=== PATIENT | female | born 1990 | race Caucasian/White ===

== ENCOUNTER 2019-10-11 23:42 | Emergency (ER) | payer MEDICAID, SELFPAY ==
[2019-10-11 23:55] VITALS: BP 164/110; PULSE 75; RESP 18; TEMP 36.9; O2SAT 97; BMI 36.0
--- NOTE | 2019-10-12 02:39 | W.ED.ABDPA2 ---
HPI - Abdominal Pain General: Chief Complaint: Abdominal Pain Stated Complaint: ABD PAIN Time Seen by Provider: 10/12/19 02:35 Source: patient Mode of arrival: ambulatory Limitations: no limitations History of Present Illness: HPI narrative: 29-year-old female states she has been having right lower quadrant abdominal pain over the last day. She states it is episodic in nature and seems be worse with movement. States the pain currently is a 2 out of 10. Denies any vomiting or diarrhea. Denies any fevers. Patient denies any vaginal discharge or bleeding. MD elicited complaint: abdominal pain Pertinent past history: none Onset (ago): day(s) Pain Consistency: constant Location: RLQ Severity: moderate Radiation: none Exacerbating factors: movement Relieving factors: rest Associated Symptoms: Reports nausea; Denies chills, dysuria and fever(s) Related Data: Date of Last Menstrual Period: 10/01/19 Review of Systems Const: Denies: fever, chills, body aches or change in appetite Eyes: Denies: blurry vision or eye discomfort ENMT: Denies: throat pain or dental pain Card: Denies: chest pain Resp: Denies: shortness of breath GI: Reports: abdominal pain and nausea : Denies: painful urination Musc: Denies: neck pain or back pain Skin/Breast: Denies: rash Neuro: Denies: headache Psych: Denies: depression Shiraz/Lymph: Denies: easy bruising All/Imm: Denies: hives [facility] ED PFSH: Social History Smoking and tobacco status: never smoked Female Reproductive History: Date of last menstrual period: 10/01/19 Physical Exam Const: COMMON NORMALS: no apparent distress, oriented x3 and healthy appearing HENMT: COMMON NORMALS: normocephalic and head/scalp atraumatic HEAD & SCALP: normocephalic and atraumatic Eye: COMMON NORMALS: PERRL and EOMs intact bilaterally PUPIL: Yes PERRL Neck/C-Spine: COMMON NORMALS: full ROM and supple Chest: COMMONS NORMALS: inspection of chest normal and palpation of chest normal Resp: COMMON NORMALS: normal respiratory effort, no retractions, no use of accessory muscles and clear to auscultation bilaterally AUSCULTATION: clear to auscultation bilaterally Cardio: COMMON NORMALS: regular rate, regular rhythm and no murmurs RATE: regular rate RHYTHM: regular rhythm GI: COMMON NORMALS: normal to inspection, nondistended, normoactive bowel sounds, soft to palpation and no masses PALPATION: Yes soft and Yes tender Details: RLQ Extremity: COMMON NORMALS: normal to inspection and full ROM Neuro: COMMON NORMALS: oriented x3, moves all extremities and no focal motor deficits Psych: COMMON NORMALS: mental status grossly normal, thought process normal and cooperative THOUGHT PROCESS: normal thought process Skin: COMMON NORMALS: no rashes or lesions noted and no wounds GENERAL SKIN EXAM: no rashes or lesions noted Course Vital Signs: Vital signs: Vital Signs Temperature 98.5 F 10/11/19 23:55 Pulse Rate 71 10/12/19 03:15 Respiratory Rate 16 10/12/19 03:15 Blood Pressure 128/81 10/12/19 03:15 Pulse Oximetry 97 10/12/19 03:15 MDM - Abdominal Pain MDM Narrative: Medical decision making narrative: Patient presents here with abdominal pain and CT found colitis. Patient's pain is improved here and lab work is otherwise negative. Will place on Augmentin along with pain meds. Patient is to follow-up with primary care doctor in 3 to 5 days and return if worsening. Lab Data: Labs: Lab Results 10/12/19 10/12/19 10/12/19 Range/Units 03:08 03:08 03:13 WBC 7.9 (4.0-10.0) 10^3/ uL RBC 5.35 H (4.1-5.3) 10^6/u L Hgb 14.0 (11.5-15.3) g/dL Hct 44.1 (37.0-47.0) % MCV 82.4 (81-99) fL MCH 26.2 L (28.0-34.0) pg MCHC 31.7 (30.0-36.0) g/dL RDW 15.2 H (12.1-15.1) % Plt Count 347 (130-400) 10^3/c mm MPV 9.0 (7.4-10.4) fL Neut % (Auto) 70.9 % Lymph % (Auto) 19.7 % [place] % (Auto) 7.7 % Eos % (Auto) 1.1 % Baso % (Auto) 0.3 % Neut # (Auto) 5.6 (1.8-7.7) 10^3/u L Lymph # (Auto) 1.6 (0.8-4.8) 10^3/u L [place] # (Auto) 0.6 (0.2-0.9) 10^3/u L Eos # (Auto) 0.1 (0.0-0.8) 10^3/u L Baso # (Auto) 0.0 (0.0-0.1) 10^3/u L Nucleated RBC % (a uto) 0 % Nucleated RBCs # 0.0 /100WBC Sodium 138 (136-145) mmol/L Potassium 3.8 (3.5-5.1) mmol/L Chloride 102 (98-107) mmol/L Carbon Dioxide 24 (22-29) mmol/L Anion Gap 15.8 (5-19) BUN 9 (6-20) mg/dL Creatinine 0.7 (0.5-0.9) mg/dL GFR Calculation 98.9 (90-130) mL/min Glucose 111 (65-115) mg/dL Calculated Osmolal ity 283 L (285-295) mOsm/k g Calcium 9.9 (8.5-10.5) mg/dL Total Bilirubin 1.2 (0.15-1.2) mg/dL AST 22 (0-32) U/L ALT 35 H (0-33) U/L Alkaline Phosphata se 93 (35-105) IU/L Total Protein 8.3 (6.6-8.7) g/dL Albumin 4.7 (3.5-5.2) g/dL Globulin 3.6 (1.3-4.6) g/dL Lipase 21 (13-60) U/L HCG, Qual Negative (Negative) Urine Color (Yellow) Urine Appearance (CLEAR) Urine pH (5-7) Ur Specific Gravit y (1.005-1.030) Urine Protein (Negative) Urine Glucose (UA) (Normal) Urine Ketones (Negative) Urine Blood (Negative) Urine Nitrate (Negative) Urine Bilirubin (NEGATIVE) Urine Urobilinogen (Negative) mg/dL Ur Leukocyte Keisha ase (Negative) Urine RBC (0-2) /hpf Urine WBC (0-5) /hpf Ur Squamous Epith Cells (0-5) Urine Bacteria (NONE) Urine Mucus 10/12/19 Range/Units 03:13 WBC (4.0-10.0) 10^3/ uL RBC (4.1-5.3) 10^6/u L Hgb (11.5-15.3) g/dL Hct (37.0-47.0) % MCV (81-99) fL MCH (28.0-34.0) pg MCHC (30.0-36.0) g/dL RDW (12.1-15.1) % Plt Count (130-400) 10^3/c mm MPV (7.4-10.4) fL Neut % (Auto) % Lymph % (Auto) % [place] % (Auto) % Eos % (Auto) % Baso % (Auto) % Neut # (Auto) (1.8-7.7) 10^3/u L Lymph # (Auto) (0.8-4.8) 10^3/u L [place] # (Auto) (0.2-0.9) 10^3/u L Eos # (Auto) (0.0-0.8) 10^3/u L Baso # (Auto) (0.0-0.1) 10^3/u L Nucleated RBC % (a uto) % Nucleated RBCs # /100WBC Sodium (136-145) mmol/L Potassium (3.5-5.1) mmol/L Chloride (98-107) mmol/L Carbon Dioxide (22-29) mmol/L Anion Gap (5-19) BUN (6-20) mg/dL Creatinine (0.5-0.9) mg/dL GFR Calculation (90-130) mL/min Glucose (65-115) mg/dL Calculated Osmolal ity (285-295) mOsm/k g Calcium (8.5-10.5) mg/dL Total Bilirubin (0.15-1.2) mg/dL AST (0-32) U/L ALT (0-33) U/L Alkaline Phosphata se (35-105) IU/L Total Protein (6.6-8.7) g/dL Albumin (3.5-5.2) g/dL Globulin (1.3-4.6) g/dL Lipase (13-60) U/L HCG, Qual (Negative) Urine Color Yellow (Yellow) Urine Appearance Clear (CLEAR) Urine pH 5 (5-7) Ur Specific Gravit y 1.025 (1.005-1.030) Urine Protein Neg (Negative) Urine Glucose (UA) Norm (Normal) Urine Ketones Negative (Negative) Urine Blood 2+ H (Negative) Urine Nitrate Negative (Negative) Urine Bilirubin Neg (NEGATIVE) Urine Urobilinogen Norm (Negative) mg/dL Ur Leukocyte Keisha ase Negative (Negative) Urine RBC 0-4 H (0-2) /hpf Urine WBC 0-4 H (0-5) /hpf Ur Squamous Epith Cells 0-4 H (0-5) Urine Bacteria Trace (NONE) Urine Mucus 2+ Imaging Data ^: CT Abd/Pel: Radiologist's impression: [place] [id number] CT Scan Report Signed Patient: Lynnette Palmer Unit #: [id number] : 1990 Age/Sex: 29 / F ADM Date: 10/11/19 Loc: ER Room/Bed: Attending Dr: Ordering Provider/Ordering MD: Senia Kay MD Date of Service: 10/12/19 Procedure(s): CT abdomen pelvis w con* [id number] Accession Number(s): [id number] Report Number: [id number] PROCEDURE INFORMATION: Exam: CT Abdomen And Pelvis With Contrast Exam date and time: 10/12/2019 3:26 AM Age: 29 years old Clinical indication: Abdominal pain; Localized; Lower; Patient HX: C section 4 months ago for twins; Additional info: Abdomen pain TECHNIQUE: Imaging protocol: Computed tomography of the abdomen and pelvis with intravenous contrast. Radiation optimization: All CT scans at this facility use at least one of these dose optimization techniques: automated exposure control; mA and/or kV adjustment per patient size (includes targeted exams where dose is matched to clinical indication); or iterative reconstruction. Contrast material: OMNI 300; Contrast volume: 95 ml; Contrast route: IV; COMPARISON: No relevant prior studies available. RADIATION DOSE METRICS: Total DLP: 1601.33 mGy-cm FINDINGS: Lungs: Visualized portions of the lung bases are clear. Liver: Unremarkable. Gallbladder and bile ducts: Unremarkable. Pancreas: Unremarkable. Spleen: There is a 2.1 cm x 1.5 cm well-defined hypodense lesion in the spleen on series 2, image 20. Appearance suggests benign etiology. Adrenals: Unremarkable. Kidneys and ureters: Unremarkable. No hydronephrosis. Stomach and bowel: No evidence of bowel obstruction. A short segment of the proximal descending colon demonstrates moderate wall thickening, consistent with inflammatory change/colitis. Moderate inflammatory change of the surrounding fat. Differential diagnosis includes infection and inflammatory bowel disease. There is a thin layer of retroperitoneal fluid posterior to the descending colon. Appendix: The appendix is not definitively identified as a separate structure. Intraperitoneal space: No free intraperitoneal air identified. Mild free fluid in the pelvis. Vasculature: The abdominal aorta is unremarkable. Lymph nodes: Unremarkable. Bladder: The bladder is unremarkable. Reproductive: The uterus is unremarkable. Bones/joints: Visualized bones are unremarkable. Soft tissues: Unremarkable. CT/CT abdomen pelvis w con* [id number] IMPRESSION: 1. Colitis involving a short segment of the proximal descending colon. Differential diagnosis includes infection and inflammatory bowel disease. Discharge Plan Discharge Patient Disposition: Home, Self-Care Clinical Impression: Colitis Condition: Stable Prescriptions: [place] 5-325 mg tablet 1 tab PO Q6H PRN (Reason: pain) Qty: 10 RF: 0 Zofran 4 mg tablet 4 mg PO QID PRN (Reason: nausea and vomiting) Qty: 14 RF: 0 Augmentin 875-125 mg tablet 1 tab PO BID Qty: 14 RF: 0 Discharge Orders: Discharge Order (Routine); Ordered 10/12/19 Ordered By: Senia Kay Referrals: Rula Torres FNP [Primary Care Provider] - 4-7 days Discharge Diet: Advance as tolerated Discharge Activity: Resume usual activity Patient Instructions: Abdominal Pain (ED) Coding Level of Care Code ED [employer] Technician for Chg Fwd Exam Comprehensive
--- NOTE | 2019-10-12 02:53 | PC.NURSE ---
patient states that her abdomen has been hurting centrally for about 30 hours. patient states the pain is work if she is active or moving. patient has had a loss of appetite and feels like she needs to use the bathroom but has not been able to have a bowel movement. patient feels shaky and nauseated .
[2019-10-12] MEDS: sodium chloride 0.9% 1,000 ML 999 ML IV (03:12)
[2019-10-12 03:15] VITALS: BP 128/81; PULSE 71; RESP 16; O2SAT 97
[2019-10-12 03:24] LABS: Basophils % 0.3 %; Eosinophils # 0.1 10^3/uL (0.0-0.8); Eosinophils % 1.1 %; Hematocrit 44.1 % (37.0-47.0); Lymphocytes # 1.6 10^3/uL (0.8-4.8); Lymphocytes % 19.7 %; Mean Corpuscular HGB Conc 31.7 g/dL (30.0-36.0); Mean Corpuscular Hemoglobin 26.2 pg (28.0-34.0); Mean Corpuscular Volume 82.4 fL (81-99); Monocytes # 0.6 10^3/uL (0.2-0.9); Monocytes % 7.7 %; Neutrophils # 5.6 10^3/uL (1.8-7.7); Neutrophils % 70.9 %; Nucleated Red Blood Cells % 0 %; Platelet Count 347 10^3/cmm (130-400); Red Blood Count 5.35 10^6/uL (4.1-5.3); Red Cell Distribution Width 15.2 % (12.1-15.1); White Blood Count 7.9 10^3/uL (4.0-10.0)
--- NOTE | 2019-10-12 03:24 | CTR_ITS ---
PROCEDURE INFORMATION: Exam: CT Abdomen And Pelvis With Contrast Exam date and time: 10/12/2019 3:26 AM Age: 29 years old Clinical indication: Abdominal pain; Localized; Lower; Patient HX: C section 4 months ago for twins; Additional info: Abdomen pain TECHNIQUE: Imaging protocol: Computed tomography of the abdomen and pelvis with intravenous contrast. Radiation optimization: All CT scans at this facility use at least one of these dose optimization techniques: automated exposure control; mA and/or kV adjustment per patient size (includes targeted exams where dose is matched to clinical indication); or iterative reconstruction. Contrast material: OMNI 300; Contrast volume: 95 ml; Contrast route: IV; COMPARISON: No relevant prior studies available. RADIATION DOSE METRICS: Total DLP: 1601.33 mGy-cm FINDINGS: Lungs: Visualized portions of the lung bases are clear. Liver: Unremarkable. Gallbladder and bile ducts: Unremarkable. Pancreas: Unremarkable. Spleen: There is a 2.1 cm x 1.5 cm well-defined hypodense lesion in the spleen on series 2, image 20. Appearance suggests benign etiology. Adrenals: Unremarkable. Kidneys and ureters: Unremarkable. No hydronephrosis. Stomach and bowel: No evidence of bowel obstruction. A short segment of the proximal descending colon demonstrates moderate wall thickening, consistent with inflammatory change/colitis. Moderate inflammatory change of the surrounding fat. Differential diagnosis includes infection and inflammatory bowel disease. There is a thin layer of retroperitoneal fluid posterior to the descending colon. Appendix: The appendix is not definitively identified as a separate structure. Intraperitoneal space: No free intraperitoneal air identified. Mild free fluid in the pelvis. Vasculature: The abdominal aorta is unremarkable. Lymph nodes: Unremarkable. Bladder: The bladder is unremarkable. Reproductive: The uterus is unremarkable. Bones/joints: Visualized bones are unremarkable. Soft tissues: Unremarkable. CT/CT abdomen pelvis w con* [id number] IMPRESSION: 1. Colitis involving a short segment of the proximal descending colon. Differential diagnosis includes infection and inflammatory bowel disease. Radiation Dose CTDIVOL = (mGy): DLP = 1601.33 (mGy-cm)
[2019-10-12 03:35] LABS: HCG Qualitative Urine. Negative (Negative)
[2019-10-12 03:36] LABS: Add Urine Microscopic? YES; Bilirubin Urine Neg (NEGATIVE); Blood Urine 2+ (Negative); Glucose Urine UA Norm (Normal); Ketones Urine Negative (Negative); Leukocyte Esterase Urine Negative (Negative); Nitrate Urine Negative (Negative); Protein Urine Neg (Negative); Specific Gravity, Urine 1.025 (1.005-1.030); Urine Appearance Clear (CLEAR); Urine Color Yellow (Yellow); Urobilinogen Urine Norm (Negative); pH Urine 5 (5-7)
[2019-10-12 03:37] LABS: Bacteria Urine TRACE; Mucus Urine 2+; RBC Urine 0-4 /hpf (0-2); Squamous Epithelial Cell Urine 0-4 (0-5); WBC Urine 0-4 /hpf (0-5)
[2019-10-12 03:40] LABS: Alanine Aminotransferase 35 U/L (0-33); Albumin Level 4.7 g/dL (3.5-5.2); Alkaline Phosphatase 93 IU/L (35-105); Anion Gap 15.8 (5-19); Aspartate Amino Transferase 22 U/L (0-32); Blood Urea Nitrogen 9 mg/dL (6-20); Calcium 9.9 mg/dL (8.5-10.5); Carbon Dioxide 24 mmol/L (22-29); Chloride 102 mmol/L (98-107); Creatinine Clr Calc Pharmacy 147.3103; Globulin 3.6 g/dL (1.3-4.6); Glomerular Filtration Rate 98.9 mL/min (90-130); Glucose 111 mg/dL (65-115); Lipase 21 U/L (13-60); Osmolality Calculated 283 mOsm/kg (285-295); Potassium 3.8 mmol/L (3.5-5.1); Sodium 138 mmol/L (136-145); Total Bilirubin 1.2 mg/dL (0.15-1.2); Total Protein 8.3 g/dL (6.6-8.7)
[2019-10-12] MEDS: iohexol 300 mg/mL 100 mL Btl IV (03:54)
[2019-10-12 04:58] VITALS: BP 120/70; PULSE 65; RESP 18; O2SAT 98
== END 2019-10-12 05:01 | disposition home or self-care (01) ==
PROVIDERS: Emergency Provider Emergency Medicine; PCP Nurse Practitioner Family
DX: K52.9 Noninfective gastroenteritis and colitis, unspecified (principal)
CPT/HCPCS: 12345; 74177; 80053; 81000; 81001; 81025; 83690; 85025; 96360; 96375; 99283; J7030; Q9967

== ENCOUNTER → 2022-07-01 11:30 | Outpatient (BNVA) | payer MEDICAID, SELFPAY | PROVIDERS: PCP Nurse Practitioner Family; Visit Provider Nurse Practitioner Family | DX: J02.9 Acute pharyngitis, unspecified (principal) | CPT/HCPCS: 87880 ==

== ENCOUNTER → 2024-03-23 09:34 | Outpatient (BNVA) | payer MEDICAID, SELFPAY | PROVIDERS: PCP Nurse Practitioner Family; Visit Provider Nurse Practitioner Family | DX: R07.9 Chest pain, unspecified (principal); R53.83 Other fatigue | CPT/HCPCS: 80061; 82672; 84144; 84403; 84436; 84443 ==

== ENCOUNTER 2024-04-16 06:07 | Outpatient (CLI) | payer MEDICAID, SELFPAY ==
--- NOTE | 2024-04-16 06:15 | USCV_ITS ---
Estela, Lynnette Age: 33 Gender: F : 1990 Exam Date: 04/16/2024 06:24 Ordering Phys: Rula Torres Technologist: [place] [facility] [place]: cp BP: 120 / 74 HR: 77 Rhythm: Sinus Technical Quality: Adequate MEASUREMENTS (Male / Female) Normal Values 2D ECHO LV Diastolic Diameter PLAX 4.5 cm 4.2 - 5.9 / 3.9 - 5.3 cm IVS Diastolic Thickness 0.8 cm 0.6 - 1.0 / 0.6 - 0.9 cm IVS Systolic Thickness 1.5 cm LVPW Diastolic Thickness 1.0 cm 0.6 - 1.0 / 0.6 - 0.9 cm LVPW Systolic Thickness 2.0 cm LVOT Diameter 2.0 cm LV Ejection Fraction 2D Teich 71.5 % LV Ejection Fraction MOD 4C 61.8 % LV Ejection Fraction MOD 2C 61.4 % LV Ejection Fraction 2C AL 63.3 % LA Diameter 3.1 cm RA Systolic Volume 4C AL 44.6 ml RA Systolic Volume 4C MOD 43.6 ml Aorta at Sinotubular Diameter 2.4 cm IVC Diameter 2.3 cm M-MODE LA Ao Ratio MM 1.1 AV Cusp Separation MM 2.6 cm DOPPLER AV Peak Velocity 107.0 cm/s LVOT Peak Velocity 83.0 cm/s AV Area Cont Eq vti 2.6 cm squared AV Area Cont Eq pk 2.5 cm squared MV Peak Velocity 95.0 cm/s MV Area PHT 3.4 cm squared Mitral E to A Ratio 1.6 TR Peak Velocity 199.0 cm/s TR Peak Gradient 15.8 mmHg TV Peak E Velocity 122.0 cm/s Right Atrial Pressure 3.0 mmHg Pulmonary Artery Systolic Pressu 18.8 mmHg PV Peak Velocity 95.0 cm/s FINDINGS Left Ventricle Normal left ventricular size and systolic function, EF 61%. No regional wall motion abnormalities. Right Ventricle The right ventricle is normal in size and function. Right Atrium The right atrium is normal in size. Left Atrium The left atrium is normal in size. Mitral Valve No gross abnormalities noted Aortic Valve No gross abnormalities noted Tricuspid Valve No gross abnormalities noted Pulmonic Valve No gross abnormalities noted Pericardium Normal pericardium without effusion. Aorta Normal ascending aorta dimension. IVC The inferior vena cava appears normal. CONCLUSIONS Normal left ventricular size and systolic function, EF 61%. No regional wall motion abnormalities. There is no pericardial effusion. Normal cardiac chamber sizes. No intracardiac shunts by color-flow Doppler examination. No pericardial effusion No similar previous studies are available for comparison Dr Katharine Mckenzie MD FAC (Electronically Signed) Final Date: 22 April 2024 09:18 S
== END 2024-04-16 06:08 | disposition home or self-care (01) ==
LOC: RAD 06:08
PROVIDERS: PCP Nurse Practitioner Family; Visit Provider Nurse Practitioner Family
DX: R07.9 Chest pain, unspecified (principal)
CPT/HCPCS: 93306